=== PATIENT | female | born 1960 | race Caucasian/White ===

== ENCOUNTER 2016-10-14 01:38 | Emergency (ER) | payer BC ==
[~2016-10-14] VITALS: Ht 162.6 cm; Wt 81.1 kg
[2016-10-14 02:27] LABS: HEMATOCRIT 29.2 % (36.0-46.0); MCH 39.5 PG (29.0-34.0); MCV 109.8 FL (83-99); PLATELET COUNT 251 K/uL (156-360); RBC DIS.WIDTH-CV 15.6 % (11.8-14.6); RBC DIS.WIDTH-SD 62.3 % (39-53); RED BLOOD COUNT 2.66 M/uL (3.80-5.20); WHITE BLOOD COUNT 7.1 K/uL (4.1-10.2)
[2016-10-14 02:45] LABS: CHLORIDE 103 mEq/L (99-109); POTASSIUM 3.3 mEq/L (3.7-5.4); SODIUM 139 mEq/L (136-147)
[2016-10-14 02:46] LABS: MAGNESIUM 1.9 mg/dL (1.3-2.7)
[2016-10-14 02:47] LABS: GLUCOSE 170 mg/dL (70-99)
[2016-10-14 02:48] LABS: ANION GAP 13 MEQ/L (2-14)
[2016-10-14 02:51] LABS: GFR ESTIMATE (CALCULATED) > 59 mL/min/
[2016-10-14 02:52] LABS: UREA NITROGEN (BUN) 25 mg/dL (9-23)
[2016-10-14 02:53] LABS: CREATINE KINASE 251 IU/L (1-294); TOTAL CK 251 IU/L (1-294)
[2016-10-14 03:02] LABS: CK-MB 1.8 ng/mL (0.0-4.9)
[2016-10-14] MEDS ORDERED: ROPINIROLE HCL2 MG PO (03:13)
[2016-10-14 03:53] VITALS: BP 129/84
== END 2016-10-14 03:53 | disposition home or self-care (01) ==
LOC: EME 01:38
PROVIDERS: Emergency Medicine
DX: M79.1 Myalgia (principal); G89.29 Other chronic pain; E87.6 Hypokalemia; F17.200 Nicotine dependence, unspecified, uncomplicated
CPT/HCPCS: 80048; 82550; 82553; 83735; 84100; 85027; 99281; 99284

== ENCOUNTER 2017-06-01 13:27 | Inpatient (IN) | payer BC ==
[~2017-06-01] VITALS: Ht 162.6 cm; Wt 78.8 kg
[2017-06-01] VITALS (9 sets, daily range): BP systolic 95–114; BP diastolic 55–66
[~2017-06-01 13:27] MED LIST: ROPINIROLE HCL2 MG PO
[2017-06-01 14:22] LABS: CHLORIDE 104 mEq/L (99-109); POTASSIUM 3.4 mEq/L (3.7-5.4); SODIUM 138 mEq/L (136-147)
[2017-06-01 14:25] LABS: GLUCOSE 145 mg/dL (70-99)
[2017-06-01 14:26] LABS: HEMATOCRIT 15.4 % (36.0-46.0); HEMOGLOBIN 5.4 G/DL (11.9-15.5); MCH 37.5 PG (29.0-34.0); MCHC 35.1 G/DL (30.0-36.0); MCV 106.9 FL (83-99); NRBC (%) 1.6 /100 WBC (0-0); PLATELET COUNT 89 K/uL (156-360); RBC DIS.WIDTH-CV 18.9 % (11.8-14.6); RBC DIS.WIDTH-SD 71.7 % (39-53); RED BLOOD COUNT 1.44 M/uL (3.80-5.20); WHITE BLOOD COUNT 2.6 K/uL (4.1-10.2)
[2017-06-01 14:27] LABS: CREATININE 0.8 mg/dL (0.6-1.3); GFR ESTIMATE (CALCULATED) > 59 mL/min/
[2017-06-01 14:28] LABS: UREA NITROGEN (BUN) 15 mg/dL (9-23)
[2017-06-01 14:39] LABS: MAGNESIUM 1.9 mg/dL (1.3-2.7)
[2017-06-01 14:48] LABS: TROP-I INTERPRETATION NEGATIVE; TROPONIN-I < 0.01 ng/mL (0.0-0.30)
[2017-06-01 14:58] LABS: CARBON DIOXIDE (BICARBONATE) 29.3 MEQ/L (20-31)
[2017-06-01] MEDS ORDERED: AMOX TR-K CLV1 EAC4 PO (15:39)
[2017-06-01] MEDS ORDERED: GLIMEPIRIDE4 MG PO (15:40)
[2017-06-01] MEDS ORDERED: CLOBETASOL PROP60 GM TP (15:42)
[2017-06-01] MEDS ORDERED: DESLORATADINE5 MG PO (15:43)
[2017-06-01] MEDS ORDERED: METAXALONE800 MG PO (15:44)
[2017-06-01] MEDS ORDERED: POTASSIUM CHLO20 ME1 PO (15:45)
[2017-06-01] MEDS ORDERED: HYDROCHLOROTHIA50 MG PO (15:46)
[2017-06-01] MEDS ORDERED: LEVEMIR FL100 UNIT/1 SC (15:48)
[2017-06-01] MEDS ORDERED: FENOFIBRIC ACI135 MG PO (15:49)
[2017-06-01] MEDS ORDERED: METFORMIN HCL500 M1 PO (15:50)
[2017-06-01] MEDS ORDERED: ROSUVASTATIN CA20 MG PO (15:50)
[2017-06-01] MEDS ORDERED: CHILD ASPIRIN81 M1 PO (15:51)
[2017-06-01] MEDS ORDERED: VITAMIN D31000 UNIT PO (15:52)
[2017-06-01 18:41] LABS: MCH 35.7 PG (29.0-34.0); MCHC 35.3 G/DL (30.0-36.0); NRBC (%) 2.2 /100 WBC (0-0); PLATELET COUNT 81 K/uL (156-360); RBC DIS.WIDTH-CV 20.8 % (11.8-14.6); RBC DIS.WIDTH-SD 74.6 % (39-53); RED BLOOD COUNT 1.68 M/uL (3.80-5.20); WHITE BLOOD COUNT 2.7 K/uL (4.1-10.2)
[2017-06-01 18:42] LABS: MCV 101.2 FL (83-99)
[2017-06-01 19:07] LABS: ALBUMIN 3.9 g/dL (3.2-4.8)
[2017-06-01 19:09] LABS: TOTAL PROTEIN 5.9 g/dL (6.4-8.3)
[2017-06-01 19:11] LABS: TOTAL BILIRUBIN 1.3 mg/dL (0.0-1.0)
[2017-06-01 19:12] LABS: ALKALINE PHOSPHATASE 32 IU/L (3-129)
[2017-06-01 19:15] LABS: ALT (GPT) 31 IU/L (3-49); AST (GOT) 56 IU/L (2-34); DIRECT BILIRUBIN 0.7 mg/dL (0.0-0.3)
[2017-06-01 19:33] LABS: INTER. NORMALIZED RATIO 1.1
[2017-06-01 19:34] LABS: ABS NEUTROPHIL COUNT 1.4; ANISOCYTOSIS 2+; EOSINOPHIL ABS CT 0.1; MACROCYTES 1+
[2017-06-01 19:36] LABS: PTT 24.1 SEC (25-37)
[2017-06-01 20:03] LABS: LACTATE DEHYDROGENASE 2083 IU/L (20-246)
[2017-06-01 21:55] LABS: IRON 236 MCG/DL (35-150)
[2017-06-01 22:23] LABS: THYROTROPIN (TSH) 2.1 MIU/L (0.4-5.5)
[2017-06-02] VITALS (10 sets, daily range): BP systolic 89–126; BP diastolic 53–70
[2017-06-02 06:41] LABS: HEMATOCRIT 20.9 % (36.0-46.0); HEMOGLOBIN 7.4 G/DL (11.9-15.5); MCH 34.9 PG (29.0-34.0); MCHC 35.4 G/DL (30.0-36.0); MCV 98.6 FL (83-99); NRBC (%) 2.3 /100 WBC (0-0); PLATELET COUNT 78 K/uL (156-360); RBC DIS.WIDTH-CV 21.9 % (11.8-14.6); RBC DIS.WIDTH-SD 73.4 % (39-53)
[2017-06-02 06:43] LABS: RED BLOOD COUNT 2.12 M/uL (3.80-5.20)
[2017-06-02 07:02] LABS: CHLORIDE 109 MEQ/L (99-109); CREATININE 0.7 MG/DL (0.6-1.3); GFR ESTIMATE (CALCULATED) > 59 mL/min/; POTASSIUM 3.5 MEQ/L (3.7-5.4); SODIUM 144 MEQ/L (136-147); UREA NITROGEN (BUN) 12 mg/dL (9-23)
[2017-06-02 07:03] LABS: GLUCOSE 74 mg/dL (70-99)
[2017-06-02 12:08] LABS: APPEARANCE CLEAR ((CLEAR)); BILIRUBIN NEGATIVE; BLOOD NEGATIVE; COLOR YELLOW ((YELLOW)); GLUCOSE (STRIP) NEGATIVE; KETONES NEGATIVE; LEUKOCYTES NEGATIVE; NITRITE NEGATIVE; PROTEIN (STRIP) NEGATIVE; SPECIFIC GRAVITY 1.008 (1.000-1.030); UCUL ADDED? NO
[2017-06-02 14:37] LABS: IMM.RETIC FRACTION 11.1 % (3-19); RETIC HGB EQUIVALENT 37.7 (28-36); RETICULOCYTE COUNT 1.9 % (0.5-1.8)
[2017-06-02 15:08] LABS: URIC ACID 3.5 mg/dL (3.1-9.2)
[2017-06-03 03:32] VITALS: BP 102/56
[2017-06-03 06:29] LABS: HEMATOCRIT 24.4 % (36.0-46.0); HEMOGLOBIN 8.8 G/DL (11.9-15.5); MCH 34.6 PG (29.0-34.0); MCHC 36.1 G/DL (30.0-36.0); MCV 96.1 FL (83-99); NRBC (%) 2.4 /100 WBC (0-0); PLATELET COUNT 75 K/uL (156-360); RBC DIS.WIDTH-CV 20.4 % (11.8-14.6); RBC DIS.WIDTH-SD 68.1 % (39-53); RED BLOOD COUNT 2.54 M/uL (3.80-5.20); WHITE BLOOD COUNT 3.4 K/uL (4.1-10.2)
[2017-06-03 06:57] LABS: CHLORIDE 112 MEQ/L (99-109); CREATININE 0.7 MG/DL (0.6-1.3); GFR ESTIMATE (CALCULATED) > 59 mL/min/; POTASSIUM 3.4 MEQ/L (3.7-5.4); SODIUM 145 MEQ/L (136-147); UREA NITROGEN (BUN) 13 mg/dL (9-23)
[2017-06-03 06:58] LABS: GLUCOSE 93 mg/dL (70-99)
[2017-06-03 07:11] LABS: ABS NEUTROPHIL COUNT 1.4; ANISOCYTOSIS 2+; ATYPICAL LYMPHOCYTE 1.9 %; BAND NEUTROPHILS 2.9 % (0-8.0); EOSINOPHIL ABS CT 0.1; EOSINOPHILS 3.9 % (0-5.0); HEMATOLOGY COMMENT 1 SN; LYMPHOCYTES 44.7 % (15.0-45.0); MACROCYTES 1+; METAMYELOCYTES 1.9 %; MICROCYTOSIS 1+; MONOCYTES 4.9 % (0-9.0); MYELOCYTES 2.9 %; NUCLEATED RBC'S 3.9; PLAT.SUFFICIENCY DECREASED; POLYCHROMASIA 2+; SEG.NEUTROPHILS 36.9 % (46.0-76.0)
[2017-06-03 07:29] VITALS: BP 114/65
[2017-06-03 10:42] LABS: ANTI-HEPATITIS B CORE (TOTAL) Nonreactive
[2017-06-03 10:47] LABS: HEPATITIS B SURFACE ANTIGEN Nonreactive; HEPATITIS C ANTIBODY Nonreactive
[2017-06-03 10:48] LABS: HEPATITIS B SURFACE ANTIBODY Nonreactive
[2017-06-03 10:49] LABS: HIV-1/2 AB/AG COMBO Nonreactive
[2017-06-03] MEDS ORDERED: FLONASE16 G1 BOTH NARES (10:54)
[2017-06-03] MEDS ORDERED: CYANOCOBAL1000 MCG/2 IM (10:54)
== END 2017-06-03 13:30 | disposition home or self-care (01) | DRG 812 ==
LOC: EME 13:27 → EDOF 19:35 → 5EAST 19:35 → ENRESERV 19:39 → 5EAST 20:36 → ENPENDDIS 06-03 → 5EAST 06-03 13:30
PROVIDERS: Emergency Medicine; Hospitalist; Internal Medicine Medical Oncology
PROC: 30233N1 Transfusion of Nonautologous Red Blood Cells into Peripheral Vein, Percutaneous Approach (ICD-10-PCS; principal; 2017-06-01)
DX: D51.0 Vitamin B12 deficiency anemia due to intrinsic factor deficiency (principal); D61.818 Other pancytopenia; E87.6 Hypokalemia; J01.90 Acute sinusitis, unspecified; E11.43 Type 2 diabetes mellitus with diabetic autonomic (poly)neuropathy; K31.84 Gastroparesis; E78.5 Hyperlipidemia, unspecified; I10 Essential (primary) hypertension; E66.9 Obesity, unspecified; Z68.29 Body mass index [BMI] 29.0-29.9, adult; R42 Dizziness and giddiness; K62.5 Hemorrhage of anus and rectum; R74.0 Nonspecific elevation of levels of transaminase and lactic acid dehydrogenase [LDH]; M62.838 Other muscle spasm; K76.0 Fatty (change of) liver, not elsewhere classified; F17.210 Nicotine dependence, cigarettes, uncomplicated; Z79.4 Long term (current) use of insulin; Z87.81 Personal history of (healed) traumatic fracture; Z91.81 History of falling; Z82.49 Family history of ischemic heart disease and other diseases of the circulatory system; Z83.3 Family history of diabetes mellitus
CPT/HCPCS: 71046; 74176; 80048; 80076; 81003; 82607; 82728; 82803; 82948; 83540; 83605; 83615; 83735; 83880; 84443; 84484; 84550; 85007; 85025; 85027; 85046; 85610; 85730; 86704; 86706; 86803; 86850; 86880; 86900; 86901; 86920; 87340; 87389; 87502; 93005; 99281; 99285; J1815; J3420; P9016

== ENCOUNTER 2017-11-03 19:13 | Emergency (ER) | payer BC ==
[~2017-11-03] VITALS: Ht 162.6 cm; Wt 82.1 kg
[~2017-11-03 19:13] MED LIST changes: +AMOX TR-K CLV1 EAC4 PO; +CHILD ASPIRIN81 M1 PO; +CLOBETASOL PROP60 GM TP; +CYANOCOBAL1000 MCG/2 IM; +DESLORATADINE5 MG PO; +FENOFIBRIC ACI135 MG PO; +FLONASE16 G1 BOTH NARES; +GLIMEPIRIDE4 MG PO; +HYDROCHLOROTHIA50 MG PO; +LEVEMIR FL100 UNIT/1 SC; +METAXALONE800 MG PO; +METFORMIN HCL500 M1 PO; +POTASSIUM CHLO20 ME1 PO; +ROSUVASTATIN CA20 MG PO; +VITAMIN D31000 UNIT PO
[2017-11-03 19:33] LABS: HEMOGLOBIN 14.5 G/DL (11.9-15.5); MCH 30.5 PG (29.0-34.0); MCHC 35.4 G/DL (30.0-36.0); MCV 86.1 FL (83-99); PLATELET COUNT 281 K/uL (156-360); RBC DIS.WIDTH-CV 13.2 % (11.8-14.6); RED BLOOD COUNT 4.76 M/uL (3.80-5.20); WHITE BLOOD COUNT 6.5 K/uL (4.1-10.2)
[2017-11-03 19:42] LABS: ALBUMIN 4.7 g/dL (3.2-4.8)
[2017-11-03 19:43] LABS: CHLORIDE 101 mEq/L (99-109); SODIUM 139 mEq/L (136-147)
[2017-11-03 19:45] LABS: GLUCOSE 141 mg/dL (70-99); TOTAL PROTEIN 7.5 g/dL (6.4-8.3)
[2017-11-03 19:47] LABS: TOTAL BILIRUBIN 0.7 mg/dL (0.0-1.0)
[2017-11-03 19:48] LABS: ALKALINE PHOSPHATASE 79 IU/L (3-129)
[2017-11-03 19:49] LABS: CREATININE 1.1 mg/dL (0.6-1.3); GFR ESTIMATE (CALCULATED) 55 mL/min/
[2017-11-03 19:50] LABS: AST (GOT) 27 IU/L (2-34); UREA NITROGEN (BUN) 23 mg/dL (9-23)
[2017-11-03 19:51] LABS: ALT (GPT) 27 IU/L (3-49)
[2017-11-03 19:57] LABS: QUANTITATIVE HCG < 4.0 MIU/ML
[2017-11-03 22:02] LABS: TROP-I INTERPRETATION NEGATIVE; TROPONIN-I < 0.01 ng/mL (0.0-0.30)
[2017-11-03 22:15] LABS: CREATINE KINASE 328 IU/L (1-294)
[2017-11-03 22:47] LABS: APPEARANCE CLEAR ((CLEAR)); BILIRUBIN NEGATIVE; BLOOD NEGATIVE; COLOR YELLOW ((YELLOW)); GLUCOSE (STRIP) NEGATIVE; KETONES 5; LEUKOCYTES NEGATIVE; NITRITE NEGATIVE; PROTEIN (STRIP) NEGATIVE; SPECIFIC GRAVITY 1.029 (1.000-1.030); UCUL ADDED? NO
[2017-11-03] MEDS ORDERED: SKELAXIN800 MG PO (23:22)
[2017-11-03 23:43] VITALS: BP 132/97
== END 2017-11-03 23:44 | disposition home or self-care (01) ==
LOC: RME 19:13 → EME 19:13 → RME 23:44
PROVIDERS: Physician Assistant
DX: M79.1 Myalgia (principal); E11.65 Type 2 diabetes mellitus with hyperglycemia; I49.8 Other specified cardiac arrhythmias; F17.200 Nicotine dependence, unspecified, uncomplicated; Z79.4 Long term (current) use of insulin; Z79.82 Long term (current) use of aspirin; Z88.5 Allergy status to narcotic agent
CPT/HCPCS: 80053; 81003; 82550; 84484; 84702; 85027; 93005; 99281; 99285; J1885; J7030